=== PATIENT | male | born 1970 | race Caucasian/White ===

== ENCOUNTER 2024-05-24 06:43 | Day surgery (SDC) | payer OTHER ==
[2024-05-24] MEDS: Lactated Ringers 1,000 ML IV SCH (07:16)
[2024-05-24] MEDS ORDERED: Lidocaine 2% 5 ML SDV ONE (07:41)
[2024-05-24] MEDS ORDERED: Propofol 200 MG/20 ML SDV ONE ×3 (07:41→08:14)
== END 2024-05-24 09:00 | disposition home or self-care (01) ==
LOC: MW.SDS 06:43
PROVIDERS: ATTEND Surgery
DX: K63.5 Polyp of colon (principal); K64.8 Other hemorrhoids; E11.9 Type 2 diabetes mellitus without complications; E78.00 Pure hypercholesterolemia, unspecified; F17.210 Nicotine dependence, cigarettes, uncomplicated; F17.290 Nicotine dependence, other tobacco product, uncomplicated; Z79.84 Long term (current) use of oral hypoglycemic drugs; Z79.899 Other long term (current) drug therapy
CPT/HCPCS: 45380; J2704; J7120; 00811; J3490